=== PATIENT | female | born 1970 | race Caucasian/White ===

== ENCOUNTER 2021-10-21 15:35 | Outpatient (CLI) | payer BC, SELFPAY ==
--- NOTE | 2021-10-21 | ECG_ITS ---
Measurements Intervals [place] Rate: 82 P: 1 VA: 137 QRS: 63 QRSD: 67 T: 30 QT: 353 QTc: 413 Interpretive Statements SINUS RHYTHM BASELINE ARTIFACT- II, III, AVF, V4 NORMAL ECG Electronically Signed On 10-21-2021 17:11:46 SOFTWARE QA SYSTEM SPECIALIST by Bryn Zayas D.O.
[2021-10-21 17:05] LABS: Hematocrit 42.4 % (37.0-47.0); Hemoglobin 14.5 g/dL (12.0-15.0)
[2021-10-21 17:18] LABS: Albumin Level 5.1 g/dL (3.5-5.1); Estimated Glomerular Filt Rate > 60; Glucose 82 mg/dL (65-110)
[2021-10-21 17:37] LABS: Urine Cotinine NEGATIVE
[2021-10-21 18:37] LABS: Hemoglobin A1C 5.5 % (<5.7)
== END 2021-10-21 15:36 | disposition home or self-care (01) ==
PROVIDERS: Visit Provider Orthopaedic Surgery
DX: M17.11 Unilateral primary osteoarthritis, right knee (principal); Z01.818 Encounter for other preprocedural examination
CPT/HCPCS: 80307; 82040; 82565; 82947; 83036; 85014; 85018; 93005

== ENCOUNTER 2021-12-19 12:07 | Outpatient (CLI) | payer BC, SELFPAY ==
[2021-12-19 13:16] LABS: Basophils Percent Auto 0.7 % (0.2-1.2); Eosinophils Absolute Auto 0.2 K/mm3 (0-0.3); Eosinophils Percent Auto 2.9 % (0-4.4); Hematocrit 44.1 % (37.0-47.0); Hemoglobin 14.4 g/dL (12.0-15.0); Immature Granulocyte Absolute 0.01 K/mm3 (0.00-0.031); Immature Granulocyte Percent A 0.2 % (0-0.5); Lymphocytes Absolute Auto 1.57 K/mm3 (0.9-3.2); Lymphocytes Percent Auto 28.6 % (18.3-44.2); Mean Corpuscular HGB Conc 32.7 g/dl (32-36); Mean Corpuscular Hemoglobin 30.1 pg (26-34); Mean Corpuscular Volume 92.3 fl (80-100); Mean Platelet Volume 10.1 fl (7.4-10.4); Monocytes Absolute Auto 0.4 K/mm3 (0.1-0.6); Monocytes Percent Auto 7.1 % (2.6-8.5); Neutrophils Absolute Auto 3.3 K/mm3 (1.3-6.7); Neutrophils Percent Auto 60.5 % (45.5-73.1); Platelet Count Result 256 k/mm3 (150-375); Red Blood Count 4.78 M/mm3 (4.2-5.4); Red Cell Distribution Width 12.7 % (11.5-14.5); White Blood Count 5.5 K/mm3 (4.5-10.0)
[2021-12-19 13:25] LABS: Urine Cotinine NEGATIVE
[2021-12-19 13:48] LABS: Albumin Level 5.3 g/dL (3.5-5.1); Estimated Glomerular Filt Rate > 60; Glucose 91 mg/dL (65-110)
== END 2021-12-19 12:08 | disposition home or self-care (01) ==
LOC: ANHSURGERY 12:14
PROVIDERS: Visit Provider Orthopaedic Surgery
DX: Z01.818 Encounter for other preprocedural examination (principal); M17.31 Unilateral post-traumatic osteoarthritis, right knee
CPT/HCPCS: 80307; 82040; 82565; 82947; 85025; 87081

== ENCOUNTER 2022-01-07 00:11 | Day surgery (SDC) | payer BC, SELFPAY ==
[2021-12-19 12:24] VITALS: BMI 27.2
--- NOTE | 2021-12-19 12:42 | PC.NURSE ---
Report to the Outpatient Waiting Room, entrance under the green pavilion located off [facility], at time __0900 on date _01/07/22 . OR Time: __1100 . - You and your visitor will be asked a series of questions to screen for COVID 19 for your protection. - A mask is required within the hospital. Preoperative COVID Testing Requirements: No COVID Test needed if: (proof is required; if not received patient will have Rapid Test prior to entry) - Patient has received COVID Vaccine at least 14 days prior to procedure date or - Patient has positive COVID test result within last 90 days of surgery date. COVID Test needed if above criteria is not met If not COVID vaccinated a COVID test must be conducted within 72 hours of surgery and patient is asked to isolate self from time of testing until procedure. You will go to the [facility] for your COVID testing. The [email or web address] is located at the corner of [address] from [facility]. You will only be called if COVID results are positive and your surgeon may reschedule your elective surgery date. Patients may have clear liquids (water, carbonated beverages, clear teas, apple juice) until 3 hours prior to surgery with a maximum of 20 ounces. - No food from midnight until time of surgery Take the following medications with a SIP of water the morning of surgery: NONE Medications to discontinue per physician IBUPROFEN 7 DAYS PRE OP Date to take last dose12/30/21 Please no make-up, nail tajik, hairspray, perfume, deodorant, or body powder the day of surgery. No jewelry (including any body piercings) or valuables the day of surgery, leave them at home. Please take a shower or bath the night before, or the morning of, surgery with an antibacterial soap. Wear comfortable, loose fitting clothing. Children are encouraged to wear pajamas. - Jewelry must be removed prior to entering the operating room. Rings and piercings that are not removed may be cut off. - The hospital will not accept responsibility for valuables. - Please leave all valuables, including medications, at home the day of surgery. If you are going home after surgery, a licensed driver/merchandiser must drive you home. - NO public transportation without another adult. - We recommend that an adult stay with you for 24 hours following discharge. - We also recommend that you do not drive, make important decision, drink alcoholic beverages, or take any drugs that were not prescribed by your health care provider for at least 24 hours after your discharge time. For Pediatric surgeries, we recommend two adults accompany the child home (only one inside the building at this time). One visitor will be allowed to accompany the patient into the hospital. Patients visitor will be instructed to remain with patient at all times or leave the building. We will allow the visitor to come back to the postoperative area when patient is ready. Follow any additional instructions given to you from your surgeon. VERBAL/WRITTEN instructions given to _PATIENT and asked if any additional questions and then verbalized understanding. Patient advised to call surgeon office or pre surgery nurse liaison [phone] if any additional questions.
[2021-12-19 12:59] VITALS: BP 131/84; PULSE 76; RESP 18; TEMP 37.2; O2SAT 99
--- NOTE | 2022-01-06 15:48 | WPDANESEPPF ---
Anes - Initial Pre Proc Eval Procedure: Operation Date: 01/07/22 11:00 Proposed Procedures p Right Total Knee Arthroplasty - Cy Omalley MD Date/Time: 01/06/22 15:48 Surgeon: Cy Omalley MD Pre Op Diagnosis: primary oa right knee Patient Data Age: 51 Gender: F Height: 1.7 m Weight: 78.9 kg Last Vital Signs Temp 37.2 C 12/19/21 12:59 Pulse 76 12/19/21 12:59 Resp 18 12/19/21 12:59 BP 131/84 12/19/21 12:59 Pulse Ox 99 12/19/21 12:59 Allergies Allergy/AdvReac Type Severity Reaction Status Date / Time No Known Allergies Allergy Unverified 12/19/21 12:25 Home Medications Medication Instructions Recorded Confirmed Type ibuprofen 600 mg PO Q6H PRN 12/19/21 01/07/22 History Patient hx anesthesia problems: post op nausea/vomiting Family hx anesthesia problems: none Results Review: All pre-operative results and documents have been reviewed as part of the pre-operative evaluation. [facility] Past Medical History Medical History (Updated 01/06/22 @ 15:49 by Vasquez Mondragon DO) Fibroid History of foot fracture (~1991) Osteoarthritis PONV (postoperative nausea and vomiting) Surgical History Surgical History (Updated 10/21/21 @ 15:15 by Valentina Leo) History of meniscectomy of right knee Family History Family History (Updated 10/21/21 @ 15:15 by Valentina Leo) Unknown Arthritis Social History Social History Smoking status: Never smoker Additional smoking assessment comments: DENIES ANY FORM OF TOBACCO USE Alcohol intake: current Drinks per week: 2 Living arrangements: with family Spiritual care concerns: No Anes - Eval Final PreProcedure Day of Procedure 01/06/22 15:48 Patient weight: overweight Heart: regular rate and rhythm Lungs: clear to auscultation and normal air movement Airway: Mallampati scale class II Neurological: alert and oriented Last oral intake: >/= 8 hours ASA classification: II Emergent: no Anesthetic plan: proceed Anesthesia type and monitoring: general LMA and standard monitoring Results Review: All pre-operative results and documents have been reviewed as part of the pre-operative evaluation. Informed Consent: The patient's anesthetic plan and its attendant risks and benefits were discussed with the patient/family/POA. Questions were solicited and answers provided to the satisfaction of the patient/family/POA.
--- NOTE | 2022-01-06 15:53 | WPDANESPNB ---
Anes - Peripheral Nerve Block Date/Time: 01/06/22 15:53 I have discussed with the patient/family/POA the placement of a peripheral nerve block for post-operative pain management, including associated risks, benefits, complications, and side effects. Alternative methods of post-operative analgesia were detailed. Questions were solicited and answers provided to the satisfaction of the patient/family/POA. Time-Out: A pre-procedural Time-Out was completed immediately before starting the procedure and confirmed: Patient Identification, Site, Procedure, Patient Position and the Availability of Requisite Equipment. Clinical Indications: Acute post-operative pain management requested by the operative surgeon. Nerve Block Insertion Note Anes-nerve block: adductor canal right Patient position: supine Skin prep: chlorhexidine Needle: 22 gauge, stimulating, insulated echogenic needle. Needle length: 80 mm Technique: ultrasound Injectate: bupivacaine 0.5% with epi 5 mcg/ml (30cc - no epi) Observations: tolerated well Complications: none Procedure start time:: 103 Procedure end time:: 1035
[2022-01-07] VITALS (18 sets, daily range): BP systolic 110–138; BP diastolic 48–92; PULSE 55–98; RESP 14–18; TEMP 36.3–37.5; O2SAT 92–100; BMI 27.2
--- NOTE | ~2022-01-07 | XR_ITS ---
EXAMINATION: XR knee RT 2V DATE: 01/07/2022 13:14 CDT INDICATION: Right knee arthroplasty TECHNIQUE: 2 views right knee FINDINGS: There is a right total knee arthroplasty in expected position. Subcutaneous gas with fluid and air in the joint are consistent with recent surgery. No evidence of periprosthetic fracture. IMPRESSION: 1. Recent right total knee arthroplasty. Reviewed, dictated and finalized at location A.
--- NOTE | 2022-01-07 07:19 | WPDHPUPDATE1 ---
History and Physical Update Update Date/Time: 01/07/22 07:19 History and Physical has been reviewed, including an updated exam of the patient. There are NO changes in the patient's condition. Risks, benefits, and alternatives have been discussed and questions answered. Patient agrees to proceed with procedure.
[2022-01-07] MEDS: ACETAMINOPHEN 500 MG TABLET 1000 MG PO (09:37)
[2022-01-07] MEDS: LACTATED RINGERS 1,000 ML 30 ML IV CONT ×2 (10:26→13:04)
[2022-01-07] MEDS: TRANEXAMIC ACID 1,000MG/ISO100 1,000 MG/100 ML BAG 200 MG IVPB (10:26)
[2022-01-07] MEDS: SCOPOLAMINE 1.5 MG PATCH TRANSDERM (10:32)
[2022-01-07] MEDS: ceFAZolin 2 GM/D5W 50 ML 2 GM/50 ML BAG IVPB ×2 (10:48→17:12)
[2022-01-07] MEDS: fentaNYL CITRATE INJ (*CRX) 100 MCG/2 ML VIAL 25 MCG IV PUSH ×6 (13:11→15:16)
[2022-01-07] MEDS: diphenhydrAMINE HCl INJ 50 MG/ML VIAL 25 MG IV PUSH (13:21)
--- NOTE | 2022-01-07 13:39 | W.PM.PROC2 ---
Procedure Note - Detailed Date of Procedure 01/07/22 Pre-op Diagnosis Posttraumatic arthritis right knee secondary to history of lateral tibial plateau fracture. Post-op Diagnosis Same Procedure Performed Right total knee arthroplasty. Surgeon Cy Omalley MD Supervisor Fur Dressing Raquel Lloyd PA-C Anesthesia General and Regional Indications Severe valgus arthritis with bony changes after lateral tibial plateau fracture treated with screw fixation. The screws were previously removed. Findings Mild valgus deformity treated with mild lateral release including the LCL and popliteus tendon. Satisfactory bone quality. Good patellar tracking. 3? external rotation optimal to the AP axis and flexion gap measurements. Description of Procedure The patient was brought to the operating room. A general anesthetic was administered. The leg was prepped and draped in the usual sterile fashion. The limb was elevated and the tourniquet inflated to 300 mmHg. A longitudinal incision was created along the medial border of the patella and patellar tendon, and a trivector approach to the knee was performed. No medial release was taken. The knee was then flexed. The osteophytes were carefully removed. The intramedullary guide was placed in the femoral canal. The distal femoral resection was then taken with the oscillating saw. The collateral ligaments were carefully protected. The tibia was carefully exposed. The jig was applied, and the proximal tibia was resected according to preoperative plan. The knee was balanced in extension. Appropriate releases were taken where needed. The anterior cruciate ligament and meniscal remnants were removed. The posterior cruciate ligament was sacrificed. The patella was measured. Patellar resection was carried out with the oscillating saw. The femur was sized and rotation assessed using a combination of gap balancing, posterior referencing, and the AP axis. The 4 in 1 cutting block and the box cut guide were used to finish the femoral cuts after equal gaps were assured. The osteophytes were carefully removed from the back of the knee. The knee was copiously irrigated with antibiotic solution periodically throughout the procedure. The meniscal remnants were removed. The spacer block was used to confirm equal flexion and extension gaps. Further releases were performed as needed. The tibia was sized and broached. The bony surfaces were prepared for cementing with pulsatile lavage. The real tibial and femoral and patellar components were cemented into position. Excess cement was carefully removed. Patellar tracking was carefully assessed. No additional releases were required. Dilute sterile Betadine soak performed for three minutes. Copious irrigation then performed. The wound was closed with #1 Vicryl suture, #1 Stratafix suture, 0-Stratafix suture, and 2-0 Stratafix suture followed by Steri-Strips. A sterile bulky dressing was applied. Meticulous hemostasis was maintained throughout the procedure. The pain relieving mixture was injected into the periarticular tissues during the procedure. There were no complications. The patient was extubated and brought to the recovery room in stable condition after the application of sterile dressing with Hosea bandage. Physician certified surgical tech/first assistant, Raquel Lloyd PA-C, required for surgery; including patient positioning, draping, tissue retraction, maintaining instrument position, cement removal, wound closure, and dressing placement. Implants [employer] Triathlon knee system, [place] base plate cemented tibia size 4, cemented posterior stabilized femoral component size 3 ,and an 10 mm posterior stabilized polyethylene insert. 32mm asymmetric all polyethylene patella component. Estimated Blood Loss -50.0 Tourniquet Time 70 Drains No Packing No Pathology None sent Complications No immediate complications Condition Stable Disposition PACU
--- NOTE | 2022-01-07 15:40 | PC.NURSE ---
This patient, Abbey Herrera, was admitted to 2 Medical Room 250-01. Patient/family oriented to hospital policies and general routines including ID bracelet, bed and alarms, visiting hours, pain management, procedures, bathroom and other care routines, personal items, smoking policy, room service/diet, and visiting hours. Information on how to activate the Rapid Response Team has been discussed. Patient/Family are encouraged to report perceived risks to care and to ask questions if they do not understand what they are told or what they should do.
[2022-01-07] MEDS: SODIUM CHLORIDE 0.9% IV 1,000 ML 125 ML IV CONT (16:12)
[2022-01-07] MEDS: MELOXICAM 7.5 MG TABLET PO (16:20)
[2022-01-07] MEDS: SENNA/DOCUSATE SODIUM TABLET 2 TAB PO (16:20)
[2022-01-07] MEDS: ASPIRIN 81 MG ENTERIC TABLET PO (16:21)
[2022-01-07] MEDS: FAMOTIDINE 20 MG TABLET PO (19:57)
[2022-01-07] MEDS: oxyCODONE HCL (*CRX) 5 MG TAB IR 10 MG PO (20:02)
[2022-01-08 01:26] VITALS: O2SAT 96
[2022-01-08] MEDS: ceFAZolin 2 GM/D5W 50 ML 2 GM/50 ML BAG IVPB ×2 (02:22→09:19)
[2022-01-08 03:13] VITALS: BP 100/48; PULSE 78; RESP 17; TEMP 36.9; O2SAT 95
--- NOTE | 2022-01-08 07:54 | WPDANESPN ---
Anes - Prog Note Post-Op Date/Time: 01/08/22 07:54 Cardiovascular status: normal Respiratory status: normal Airway patency: baseline Mental status: baseline Post-Op hydration status: normal Vital Signs: Last Vital Signs Temp 98.4 F 01/08/22 03:13 Pulse 78 01/08/22 03:13 Resp 17 01/08/22 03:13 BP 100/48 L 01/08/22 03:13 Pulse Ox 95 01/08/22 03:13 Pain Score (VAS): 10/28 I/O: Intake & Output 01/07/22 01/07/22 01/08/22 15:59 23:59 07:59 Intake Total 605 176 9925 Output Total 200 500 Balance 650 50 990 01/07/22 10:29 Blood Type O Positive Antibody Screen Negative Post-procedural complaints: none Patient Feedback: Patient satisfied with anesthetic care.
[2022-01-08] MEDS: polyethylene glycoL 3350 17 GM POWD.PACK PO (07:58)
[2022-01-08] MEDS: ASPIRIN 81 MG ENTERIC TABLET PO (07:58)
[2022-01-08] MEDS: MELOXICAM 7.5 MG TABLET PO (07:58)
[2022-01-08] MEDS: FAMOTIDINE 20 MG TABLET PO (07:58)
[2022-01-08] MEDS: SENNA/DOCUSATE SODIUM TABLET 2 TAB PO (07:59)
[2022-01-08 08:00] VITALS: O2SAT 97
[2022-01-08 09:18] VITALS: BP 107/59; PULSE 69
[2022-01-08] MEDS: oxyCODONE HCL (*CRX) 5 MG TAB IR PO (09:18)
[2022-01-08 09:45] VITALS: BP 115/62; PULSE 68; RESP 16; TEMP 36.9; O2SAT 98
--- NOTE | 2022-01-08 11:11 | PC.NURSE ---
[employer] reviewed student nurse assessment and charting and this production underwriter agrees with student nurse assessment.
--- NOTE | 2022-01-08 12:34 | P.DS_ITS ---
DS: Admitting Diagnosis Discharge Date 01/08/22 Admitting Diagnosis OA knee Right DS: Discharge Diagnosis Discharge Diagnosis (1) Status post total right knee replacement: Code(s): Z96.651 - Presence of right artificial knee joint Status: Acute Assessment and Plan: Postop day 1: Right total knee arthroplasty. Patient tolerated procedure well. No complications. Pain manageable with pain medication. No numbness or tingling. We had a lengthy discussion regarding postoperative wound care, limitations, expectations, and exercises. Patient shows good understanding. She has had initial physical therapy and is tolerating it well. DVT prophylaxis: 81 mg baby aspirin b.i.d. for 14 days. Short frequent walks. Pain medication: Percocet. Meloxicam. Prednisone Patient has followup appointment with Dr. Omalley in 3 weeks. DS: Summary Hospital Course Reason for hospitalization: Total knee arthroplasty Hospital Course: Patient tolerated procedure well. Has had initial PT/OT. Status at Discharge Functional status at discharge: uses cane/walker Overall status at discharge: patient is progressing back to baseline Time Spent with Patient Time attestation: Total time spent providing and/or coordinating discharge services: Exam Narrative: Overweight 51 y/o female. Resting comfortably in chair. Wearing compression socks bilaterally. Dressing intact with no drainage. Moderate swelling. No ecchymosis. No erythema. No hematoma. Range of motion limited due to pain. Calf nontender. Neurologic status intact. No varicosities. Distal pulses palpable. Discharge Plan Discharge Patient Disposition: Home, Self-Care Discharge Instructions: See green instruction sheet and green medication sheet. Stand Alone Forms: General Discharge Instructions Follow-up/Referrals: Raquel Lloyd PA [Physician Circus Supervisor] - Discharge Medications: New aspirin 81 mg tablet,delayed release (DR/EC) 81 mg PO BID 14 Days Qty: 28 RF: 0 meloxicam 15 mg tablet 15 mg PO DAILY Qty: 30 RF: 0 oxycodone-acetaminophen 5-325 mg tablet 1 - 2 tablet PO Q4-6H MDD 6 PRN (Reason: pain) Qty: 30 RF: 0 prednisone 5 mg tablet 5 mg PO DAILY 21 Days Qty: 21 RF: 0 Held ibuprofen 600 mg Tablet 600 mg PO Q6H PRN (Reason: Pain) RF: 0 Hold Instructions: Resume on 02/05/22. Hold while taking Meloxicam.
== END 2022-01-08 13:10 | disposition home or self-care (01) ==
LOC: ANHSURGERY 09:17 → ANH2MED 15:37
PROVIDERS: Visit Provider Orthopaedic Surgery
PROC: (CPT 27447; principal; 2022-01-07 11:00)
DX: M17.31 Unilateral post-traumatic osteoarthritis, right knee (principal); S82.141S Displaced bicondylar fracture of right tibia, sequela; V00-Y99 External causes of morbidity; G89.18 Other acute postprocedural pain
CPT/HCPCS: 27447; 64447; 36415; 73560; 86850; 86900; 86901; 97110; 97161; 97165; A9270; C1713; C1776; J0131; J0171; J0690; J1100; J1170; J1200; J1885; J2250; J2270; J2405; J2704; J2795; J3010; J7030; J7120